=== PATIENT | female | born 1945 | race Caucasian/White ===

== ENCOUNTER → 2016-06-17 | Outpatient (CLI) | payer MEDICARE, BC ==
[~2016-06-17] MED LIST: ADVIL200 MG PO; PRILOSEC20 MG PO; ULTRAM50 MG PO
== END | disposition disaster alternative care site (69) ==
LOC: GOPD 06-09 13:30
PROC: 3E0S33Z Introduction of Anti-inflammatory into Epidural Space, Percutaneous Approach (ICD-10-PCS; principal; 2016-06-17)
PROC: 3E0S3BZ Introduction of Anesthetic Agent into Epidural Space, Percutaneous Approach (ICD-10-PCS; 2016-06-17)
DX: M54.9 Dorsalgia, unspecified (principal)
CPT/HCPCS: J1040